=== PATIENT | male | born 1970 | race Caucasian/White ===

== ENCOUNTER → 2018-02-07 07:02 | Outpatient (CLI) | payer OTHER, SELFPAY ==
[2018-02-07 08:30] LABS: ALB/GLOB Ratio 1.2 RATIO (0.9-2.4); AST(SGOT) 19 U/L (15-37); Alanine Aminotransfer ALT/SGPT 37 U/L (16-61); Albumin, Serum 3.8 g/dL (3.2-5.0); Alkaline Phosphatase 59 U/L (45-117); Anion Gap 6 (5-15); BUN 21 mg/dL (7-18); BUN/Creat Ratio 22.1 RATIO (10-20); Calcium,Total 8.3 mg/dL (8.5-10.1); Chloride 108 mmol/L (98-107); Cholesterol 167 mg/dL (200); Creatinine, Serum 0.95 mg/dL (0.70-1.30); EST Glomerular Filtration Rate 90 mL/min (>60); Est Glom Filt Rate - Afr Amer 109 mL/min (>60); Globulin 3.2 g/dL (2.2-4.2); Glucose 91 mg/dL (74-106); High Density Lipoprotein 49 mg/dL; Magnesium 2.1 mg/dL (1.6-2.6); PSA,Total - Annual Screen 0.31 ng/mL (0.00-4.00); Sodium Level 142 mmol/L (136-145); Triglycerides 73 mg/dL; Very Low Density Lipoprotein 15 mg/dL (5-40)
== END ==
DX: Z00.00 Encounter for general adult medical examination without abnormal findings (principal); Z12.5 Encounter for screening for malignant neoplasm of prostate; I10 Essential (primary) hypertension; K21.9 Gastro-esophageal reflux disease without esophagitis; F41.1 Generalized anxiety disorder; G47.33 Obstructive sleep apnea (adult) (pediatric)
CPT/HCPCS: 36415; 80053; 80061; 83735; 84153; G0103

== ENCOUNTER → 2018-08-10 06:50 | Outpatient (CLI) | payer OTHER, SELFPAY ==
[2016-03-28 07:11] VITALS: BMI 29.2
[2018-08-10 08:19] LABS: ALB/GLOB Ratio 1.3 RATIO (0.9-2.4); AST(SGOT) 20 U/L (15-37); Alanine Aminotransfer ALT/SGPT 43 U/L (16-61); Alkaline Phosphatase 64 U/L (45-117); Anion Gap 8 (5-15); BUN 20 mg/dL (7-18); BUN/Creat Ratio 21.1 RATIO (10-20); Calcium,Total 8.5 mg/dL (8.5-10.1); Chloride 104 mmol/L (98-107); Creatinine, Serum 0.95 mg/dL (0.70-1.30); EST Glomerular Filtration Rate 91 mL/min (>60); Est Glom Filt Rate - Afr Amer 110 mL/min (>60); Globulin 3.1 g/dL (2.2-4.2); Glucose 91 mg/dL (74-106); Potassium 4.1 mmol/L (3.5-5.1); Protein, Total 7.1 g/dL (6.4-8.2); Sodium Level 140 mmol/L (136-145)
== END ==
DX: I10 Essential (primary) hypertension (principal); I87.8 Other specified disorders of veins
CPT/HCPCS: 36415; 80053

== ENCOUNTER → 2018-12-11 07:05 | Outpatient (CLI) | payer OTHER, SELFPAY ==
[2018-12-11 07:56] LABS: ALB/GLOB Ratio 1.5 RATIO (0.9-2.4); AST(SGOT) 22 U/L (15-37); Alanine Aminotransfer ALT/SGPT 49 U/L (16-61); Albumin, Serum 4.4 g/dL (3.2-5.0); Alkaline Phosphatase 63 U/L (45-117); Anion Gap 4 (5-15); BUN 17 mg/dL (7-18); BUN/Creat Ratio 15.7 RATIO (10-20); Calcium,Total 8.8 mg/dL (8.5-10.1); Chloride 105 mmol/L (98-107); Cholesterol 139 mg/dL (200); Creatinine, Serum 1.08 mg/dL (0.70-1.30); EST Glomerular Filtration Rate 78 mL/min (>60); Est Glom Filt Rate - Afr Amer 94 mL/min (>60); Glucose 92 mg/dL (74-106); High Density Lipoprotein 60 mg/dL; Protein, Total 7.4 g/dL (6.4-8.2); Sodium Level 138 mmol/L (136-145); Triglycerides 42 mg/dL; Very Low Density Lipoprotein 8 mg/dL (5-40)
[2018-12-11 07:58] LABS: Vitamin D,25 Hydroxy 45.1 ng/mL (29.95-100.01)
[2018-12-14 07:06] LABS: Testosterone, Free 7.12 ng/dL (5.00-21.00)
[2018-12-14 12:20] LABS: Testosterone, % Free 2.04 % (1.50-4.20); Testosterone, Total 349 ng/dL (264-916)
== END ==
DX: Z00.00 Encounter for general adult medical examination without abnormal findings (principal); Z12.5 Encounter for screening for malignant neoplasm of prostate; G47.33 Obstructive sleep apnea (adult) (pediatric); Z99.89 Dependence on other enabling machines and devices; R63.5 Abnormal weight gain; R53.83 Other fatigue
CPT/HCPCS: 36415; 80053; 80061; 82306; 84402; 84403

== ENCOUNTER → 2019-04-19 07:12 | Outpatient (CLI) | payer OTHER, SELFPAY ==
[2019-04-19 08:55] LABS: PSA,Total - Annual Screen 0.36 ng/mL (0.00-4.00)
== END ==
DX: Z12.5 Encounter for screening for malignant neoplasm of prostate (principal)
CPT/HCPCS: 36415; 84153; G0103

== ENCOUNTER → 2020-04-10 06:40 | Outpatient (CLI) | payer OTHER, SELFPAY ==
[2020-04-10 07:05] LABS: Absolute Lymphocyte Count 1.46 X10^3/uL (0.83-4.51); Absolute Neutrophil Count 2.6 X10^3/uL (2.0-7.7); Basophil# 0.02 X10^3/uL; Basophil% 0.4 % (0-1); Eosinophil# 0.12 X10^3/uL; Eosinophils% 2.6 % (0-5); Hematocrit 39.7 % (40-54); Hemoglobin 13.3 g/dL (13.0-16.5); Lymphocyte # 1.46 X10^3/ul (4.0); Lymphocyte % 31.7 % (19-41); Mean Corp Hgb Conc 33.5 g/dL (32-36); Mean Corpuscular Hgb 30.9 pg (27.0-32.0); Mean Corpuscular Volume 92.3 fL (80-94); Mean Platelet Vol. 9.5 fl (6.2-12.0); Monocyte# 0.45 X10^3/uL; Monocyte% 9.8 % (0-10); NRBC Flagged by Analyzer 0 % (0-5); Neutrophil # 2.55 X10^3/uL (2.7-7.7); Neutrophil % 55.5 % (47-70); Platelet Count 180 K/mm3 (150-450); RBC Distribution Width CV 12.4 % (11.6-14.6); RBC Distribution Width SD 41.8 fl (35.1-43.9); White Blood Count 4.6 K/mm3 (4.4-11.0)
[2020-04-10 07:38] LABS: ALB/GLOB Ratio 1.3 RATIO (0.9-2.4); AST(SGOT) 14 U/L (15-37); Alanine Aminotransfer ALT/SGPT 26 U/L (16-61); Alkaline Phosphatase 67 U/L (45-117); Anion Gap 3 (5-15); BUN 21 mg/dL (7-18); BUN/Creat Ratio 21.4 RATIO (10-20); Calcium,Total 8.9 mg/dL (8.5-10.1); Chloride 109 mmol/L (98-107); Cholesterol 156 mg/dL (200); Creatinine, Serum 0.98 mg/dL (0.70-1.30); EST Glomerular Filtration Rate 86 mL/min (>60); Est Glom Filt Rate - Afr Amer 105 mL/min (>60); Globulin 3.1 g/dL (2.2-4.2); Glucose 88 mg/dL (74-106); High Density Lipoprotein 52 mg/dL; Protein, Total 7.1 g/dL (6.4-8.2); Sodium Level 142 mmol/L (136-145); Triglycerides 65 mg/dL; Very Low Density Lipoprotein 13 mg/dL (5-40)
== END ==
PROVIDERS: PCP Family Medicine; Referring Provider Family Medicine; Visit Provider Family Medicine
DX: Z00.00 Encounter for general adult medical examination without abnormal findings (principal)
CPT/HCPCS: 36415; 80053; 80061; 85025; 86900; 86901

== ENCOUNTER → 2020-05-21 17:31 | Outpatient (CLI) | payer OTHER, SELFPAY ==
[2016-03-28 07:11] VITALS: BMI 29.2
--- NOTE | 2020-05-21 17:34 | RAD_ITS ---
STUDY: X-RAY - THORACIC SPINE REASON FOR EXAM: Male, 49 years old. BACK PAIN TECHNIQUE: 3 view(s) of the thoracic spine were obtained. COMPARISON: None. FINDINGS: No acute fracture, dislocation or osseous destruction. No significant scoliosis. Thoracic kyphosis maintained. Mild multilevel disc height loss. Mild multilevel endplate spondylosis. Tiny osteophytes. No significant soft tissue swelling. RAD/Thoracic Spine 3 Views IMPRESSION: Mild thoracic spondylosis with disc height loss Electronically Signed: Michele Yu DO at 10:58 EDT Tel , Service support ,
--- NOTE | 2020-05-21 17:43 | RAD_ITS ---
STUDY: X-RAY - LUMBAR SPINE REASON FOR EXAM: Male, 49 years old. BACK PAIN TECHNIQUE: 2 view(s) of the lumbar spine were obtained. COMPARISON: None FINDINGS: No acute fracture, dislocation or osseous destruction. Exaggerated lordosis. No scoliosis. Mild endplate spondylosis. Mild disc height loss. Moderate facet arthrosis. Mild lower lumbar neural foraminal narrowing. No significant soft tissue swelling. Normal bowel gas pattern. RAD/L/S Spine Min 4 Views IMPRESSION: Mild/moderate lumbar spine osteoarthritis Electronically Signed: Michele Yu DO at 11:00 EDT Tel , Service support ,
== END ==
PROVIDERS: PCP Family Medicine; Referring Provider Anesthesiology Pain Medicine; Visit Provider Anesthesiology Pain Medicine
DX: M54.9 Dorsalgia, unspecified (principal)
CPT/HCPCS: 72072; 72110

== ENCOUNTER → 2020-11-13 16:39 | Outpatient (CLI) | payer OTHER, SELFPAY ==
--- NOTE | 2020-11-13 16:44 | CT_ITS ---
STUDY: CT ABDOMEN AND PELVIS WITH CONTRAST REASON FOR EXAM: Male, 50 years old. 50YR OLD MALE W/PERSISTENT LQ ABD PAIN OF UNCERTAIN ETIOLOGY -- POSSIBLE HEMIA RADIATION DOSAGE (If Supplied By Facility): CTDIvol = ( 19.545 ) mGy, DLP = ( 1158.89 ) mGycm TECHNIQUE: Transaxial images were obtained from the dome of the diaphragm to the symphysis pubis without oral contrast. Oral and amp; IV Read i-CAT and amp; 100mL Isovue-370 was administered. Sagittal and coronal images were reconstructed. Individualized dose optimization techniques were used for this CT. COMPARISON: None. FINDINGS: Lung bases clear. Mildly enlarged spleen measuring 15.5 cm in the greatest dimension. Unremarkable pancreas, adrenals, and bilateral kidneys. No definite cholelithiasis. No CT evidence of acute appendicitis. Bowel loops nonobstructed. A few tiny sigmoid diverticula. No acute diverticulitis. No free air or free fluid. No adenopathy. Minimal vascular calcification. No abdominal aortic aneurysm. Sections through the pelvis demonstrate a grossly unremarkable urinary bladder. Prostate is top normal in size. Fat-containing left inguinal hernia is seen. Mild multilevel thoracolumbar spondylosis. CT/Abdomen/Pelvis WITH Contrast IMPRESSION: No acute finding in the abdomen and pelvis. A few tiny sigmoid diverticula. No acute diverticulitis. Electronically Signed: Mauricio Reid MD at 17:12 EDT Tel , Service support ,
== END ==
PROVIDERS: PCP Family Medicine; Referring Provider Family Medicine; Visit Provider Family Medicine
DX: R10.31 Right lower quadrant pain (principal)
CPT/HCPCS: 74177; Q9967

== ENCOUNTER → 2021-04-29 06:53 | Outpatient (CLI) | payer OTHER, SELFPAY ==
[2021-04-29 08:14] LABS: Absolute Lymphocyte Count 1.28 X10^3/uL (0.83-4.51); Absolute Neutrophil Count 2.9 X10^3/uL (2.0-7.7); Basophil# 0.03 X10^3/uL; Basophil% 0.6 % (0-1); Eosinophil# 0.07 X10^3/uL; Eosinophils% 1.5 % (0-5); Hematocrit 39.4 % (40-54); Hemoglobin 13.7 g/dL (13.0-16.5); Lymphocyte # 1.28 X10^3/ul (0.83-4.51); Lymphocyte % 27.2 % (19-41); Mean Corp Hgb Conc 34.8 g/dL (32-36); Mean Corpuscular Hgb 31.4 pg (27.0-32.0); Mean Corpuscular Volume 90.4 fL (80-94); Mean Platelet Vol. 10.7 fl (6.2-12.0); Monocyte# 0.41 X10^3/uL; Monocyte% 8.7 % (0-10); NRBC Flagged by Analyzer 0 % (0-5); Neutrophil # 2.92 X10^3/uL (2.7-7.7); Platelet Count 179 K/mm3 (150-450); RBC Distribution Width CV 12.3 % (11.6-14.6); RBC Distribution Width SD 40.8 fl (35.1-43.9); Red Blood Count 4.36 M/mm3 (4.6-6.2); White Blood Count 4.7 K/mm3 (4.4-11.0)
[2021-04-29 08:48] LABS: ALB/GLOB Ratio 1.3 RATIO (0.9-2.4); AST(SGOT) 16 U/L (15-37); Alanine Aminotransfer ALT/SGPT 29 U/L (16-61); Alkaline Phosphatase 64 U/L (45-117); Anion Gap 6 (5-15); BUN 18 mg/dL (7-18); BUN/Creat Ratio 19.9 RATIO (10-20); Calcium,Total 8.6 mg/dL (8.5-10.1); Chloride 107 mmol/L (98-107); Cholesterol 169 mg/dL (200); EST Glomerular Filtration Rate 94 mL/min (>60); Est Glom Filt Rate - Afr Amer 114 mL/min (>60); Glucose 94 mg/dL (74-106); High Density Lipoprotein 59 mg/dL; PSA,Total - Annual Screen 0.36 ng/mL (0.00-4.00); Potassium 3.7 mmol/L (3.5-5.1); Sodium Level 140 mmol/L (136-145); Triglycerides 53 mg/dL; Very Low Density Lipoprotein 11 mg/dL (5-40)
== END ==
PROVIDERS: PCP Family Medicine; Referring Provider Family Medicine; Visit Provider Family Medicine
DX: Z00.00 Encounter for general adult medical examination without abnormal findings (principal); Z12.5 Encounter for screening for malignant neoplasm of prostate
CPT/HCPCS: 36415; 80053; 80061; 84153; 85025; G0103